=== PATIENT | male | born 1945 | race Caucasian/White ===

== ENCOUNTER 2020-08-03 12:54 | Emergency (ER) | payer MEDICARE ==
[~2020-08-03] VITALS: Ht 172.7 cm; Wt 54.5 kg
[~2020-08-03 12:54] MED LIST: OXYB5TAB16 PO; POLY119P2 PO
[2020-08-03 14:00] LABS: BASOPHILS % (AUTO) 0.3 % (0-1); EOSINOPHILS % (AUTO) 0 % (0-6); HEMATOCRIT 42.8 % (42.0-52.0); HEMOGLOBIN 14.5 g/dl (14.0-17.9); LYMPHOCYTES # (AUTO) 0.8 X10'3 (1.1-4.8); LYMPHOCYTES % (AUTO) 13.7 % (21-51); MEAN CORPUSCULAR HEMOGLOBIN 29.4 PG (27.0-31.0); MEAN CORPUSCULAR HGB CONC 33.8 g/dL (33.0-36.5); MEAN PLATELET VOLUME 10.1 FL (7.4-10.4); MONOCYTES # (AUTO) 0.3 X10'3 (0-0.9); MONOCYTES % (AUTO) 5.5 % (2-12); NEUTROPHILS % (AUTO) 80.5 % (42-75); PLATELET COUNT 140 X10'3 (140-440); RED BLOOD COUNT 4.92 X10'6 (4.70-6.10); RED CELL DISTRIBUTION WIDTH 12.5 % (11.5-14.5); WHITE BLOOD COUNT 6.2 X10'3 (4.5-11.0)
[2020-08-03] MEDS ORDERED: dexamethasone 4mg tablet PO ONE (14:10)
[2020-08-03 14:13] LABS: ALANINE AMINOTRANSFERASE 44 U/L (12-78); ALBUMIN/GLOBULIN RATIO 0.8 (1.1-1.5); ALKALINE PHOSPHATASE 63 IU/L (46-116); ANION GAP 5 (8-16); ASPARTATE AMINO TRANSFERASE 44 U/L (10-37); BILIRUBIN,TOTAL 0.9 MG/DL (0.1-1.0); BLOOD UREA NITROGEN 17 MG/DL (7-18); BUN/CREATININE RATIO 14.8 (5.4-32.0); CALCIUM 8.1 MG/DL (8.5-10.1); CHLORIDE 98 MMOL/L (99-107); CREATININE 1.15 MG/DL (0.60-1.10); GLUCOSE 102 MG/DL (70-104); POTASSIUM 4.5 MMOL/L (3.5-5.1); SODIUM 132 MMOL/L (135-145); TOTAL CARBON DIOXIDE 29.1 MMOL/L (24-32); TOTAL PROTEIN 6.6 G/DL (6.4-8.2); eGFR 62 ML/MIN
[2020-08-03] MEDS ORDERED: acetaminophen 325mg tablet PO ONE (14:25)
[2020-08-03 14:27] LABS: C-REACTIVE PROTEIN 5.21 MG/DL (0.0-0.5)
[2020-08-03 15:23] VITALS: BP 113/57
[2020-08-03] MEDS ORDERED: CHOL20004 PO (15:28)
[2020-08-03] MEDS ORDERED: PRED5TAB PO (15:28)
[2020-08-03] MEDS ORDERED: ZINC220C11 PO (15:28)
[2020-08-03] MEDS ORDERED: MAG CITRATE (15:28)
[2020-08-03] MEDS ORDERED: [UNRECOGNIZED DRUG - OTHER] PO (15:28)
[2020-08-03] MEDS ORDERED: FLO0.4C PO ×2 (15:28→16:00)
[2020-08-03] MEDS ORDERED: FURO-150 PO (15:51)
[2020-08-03] MEDS ORDERED: DEXA6TAB6 PO (15:51)
[2020-08-03] MEDS ORDERED: ALBU8HFA PO (15:51)
[2020-08-03] MEDS ORDERED: QUER1POW PO (15:54)
[2020-08-03] MEDS: furosemide 20MG tablet PO ONE ×2 (15:56→16:19)
[2020-08-03] MEDS ORDERED: furosemide 20MG tablet PO ONE (16:05)
--- NOTE | 2020-08-03 16:19 | NUR ---
DROPPED 1 LASIX 20MG ON FLOOR. CALLED PHARMACY TO ADD ADDITIONAL LASIX 20MG PO. GIVEN TO PT
[2020-08-03] MEDS ORDERED: BENZ-16 PO (16:32)
== END 2020-08-03 16:48 | disposition home or self-care (01) ==
LOC: ER 12:54
DX: U07.1 COVID-19 (principal); J12.82 Pneumonia due to coronavirus disease 2019; R06.02 Shortness of breath; R05 Cough; Z79.899 Other long term (current) drug therapy
CPT/HCPCS: 36415; 71045; 80053; 83605; 83880; 84145; 84484; 85025; 86140; 87040; 93005; 99285

== ENCOUNTER → 2024-12-03 | Outpatient (CLI) | payer MEDICARE ==
[~2024-12-03] MED LIST changes: +CHOL20004 PO; +DEXA6TAB6 PO; +FLO0.4C PO; +MAG CITRATE; -OXYB5TAB16 PO; -POLY119P2 PO; +PRED5TAB PO; +QUER1POW PO; +ZINC220C11 PO
--- NOTE | 2024-12-03 16:44 | RADIOLOGY REPORT ---
EXAM: DI CHEST,TWO VIEWS CLINICAL HISTORY: CHEST PAIN COMPARISON: None TECHNIQUE: Frontal and lateral view of the chest was obtained FINDINGS: Lines and Tubes: None Lungs: No focal consolidation. Pleura: No effusion. No pneumothorax. Cardiomediastinal contours: Unremarkable Bones: No acute osseous abnormality. IMPRESSION: No acute cardiopulmonary disease.
== END | disposition home or self-care (01) ==
LOC: RAD 16:05
PROVIDERS: ATTEND Internal Medicine
DX: R07.9 Chest pain, unspecified (principal)
CPT/HCPCS: 71046